=== PATIENT | male | born 1990 | race Two or more races ===

== ENCOUNTER 2018-05-07 21:14 | Emergency (ER) | payer BC, OTHER ==
[~2018-05-07] VITALS: Ht 172.7 cm; Wt 68.0 kg
[~2018-05-07 21:14] MED LIST: IBUPROFEN600 M1 PO; IBUPROFEN600 MG ORAL; MECLIZINE HCL25 MG ORAL; NAPROXEN500 M2 ORAL; NKM
--- NOTE | 2018-05-07 21:33 | NUR ---
ED Nurse Note: Patient walk in c/o sore throat for 2x days. Patient states he had a sore throat 2x weeks ago, took unprescribed amoxicillin for 1x week, sore throat was relieved and then came back 2x days ago. AO4. NAD.
[2018-05-07 21:34] VITALS: BP 105/68
--- NOTE | 2018-05-07 21:59 | NUR ---
ED Nurse Note: ERMD at bedside
[2018-05-07 22:23] VITALS: BP 105/68
--- NOTE | 2018-05-07 22:23 | NUR ---
ED Nurse Note: Patient cleared for discharge per ERMD. AO4. NAD. VSS. Patient given prescriptions and discharge instructions; verbalized understanding. ID band removed. Patient ambulated out with all personal belongings with steady gait.
--- NOTE | 2018-05-08 03:44 | Emergency Room Report ---
History of Present Illness General Chief Complaint: Sore Throat Source: Patient Present Illness HPI 27-year-old M presents ED for evaluation. Patient complaining of sore throat. Started 2 days ago. Pain is dull, 8 out of 10, nonradiating. Notes cough which is dry. Denies fevers or chills. Denies earache. Denies sick contacts or recent travel. States that he has throat pain last month. Was prescribed antibiotics and states it resolved. States at the time he did not have a cough. No other aggravating relieving factors. Denies any other associated symptoms Allergies: Coded Allergies: No Known Allergies (Unverified , 10/21/13) Patient History Past Medical History: none Past Surgical History: none Pertinent Family History: none Social History: Denies: smoking, alcohol use, drug use Immunizations: UTD Reviewed Nursing Documentation: PMH: Agreed; PSxH: Agreed Nursing Documentation-PMH Past Medical History: No Stated History Review of Systems All Other Systems: negative except mentioned in HPI Physical Exam Vital Signs Date Time Temp Pulse Resp B/P (MAP) Pulse Ox O2 Delivery O2 Flow Rate FiO2 05/07/18 21:27 97.9 65 16 105/68 97 Room Air Sp02 EP Interpretation: reviewed, normal General Appearance: no apparent distress, alert, GCS 15, non-toxic Head: normocephalic, atraumatic Eyes: bilateral eye normal inspection, bilateral eye PERRL ENT: hearing grossly normal, normal pharynx, no angioedema, normal voice Neck: full range of motion, supple/symm/no masses Respiratory: chest non-tender, lungs clear, normal breath sounds, speaking full sentences Cardiovascular #1: regular rate, rhythm, no edema Cardiovascular #2: 2+ carotid (R), 2+ carotid (L), 2+ radial (R), 2+ radial (L) , 2+ dorsalis pedis (R), 2+ dorsalis pedis (L) Gastrointestinal: normal bowel sounds, non tender, soft, non-distended, no guarding, no rebound Rectal: deferred Genitourinary: normal inspection, no CVA tenderness Musculoskeletal: back normal, gait/station normal, normal range of motion, non- tender Neurologic: alert, oriented x3, responsive, motor strength/tone normal, sensory intact, speech normal Psychiatric: judgement/insight normal, memory normal, mood/affect normal, no suicidal/homicidal ideation Reflexes: 3+ bicep (R), 3+ bicep (L), 3+ tricep (R), 3+ tricep (L), 3+ knee (R) , 3+ knee (L) Skin: normal color, no rash, warm/dry, well hydrated Lymphatic: no adenopathy Medical Decision Making Diagnostic Impression: Primary Impression: Viral pharyngitis ER Course Hospital Course 27-year-old male presents to ED complaining of sore throat + cough Differential diagnoses include: URI, pharyngitis, otitis media Clinical course Patient placed on stretcher. After initial history, physical exam reveals a young male in no acute distress. Bilateral TM unremarkable. There is no appreciable pharyngeal erythema, no tonsillar exudates. No lymphadenopathy. with cough, consideration for viral pharyngitis Discussed findings with patient. Likely viral. I do not believe antibiotics are indicated at this time. I believe course is self-limited. Patient agrees with plan Stay for discharge and close outpatient follow-up. Patient has a PMD Diagnosis - viral pharyngitis Stable and discharged home. Instructed to followup with PMD. return to ED if symptoms recur or worsen Last Vital Signs Date Time Temp Pulse Resp B/P (MAP) Pulse Ox O2 Delivery O2 Flow Rate FiO2 05/07/18 22:23 97.9 65 16 105/68 97 Room Air Status: improved Disposition: HOME, SELF-CARE Condition: Stable Referrals: BARBARA WADDELL MD (PCP) Patient Instructions: Pharyngitis, [id number] Stan Hughes MD May 08, 2018 03:44
== END 2018-05-07 22:23 | disposition home or self-care (01) ==
LOC: EMR 21:39
DX: J02.8 Acute pharyngitis due to other specified organisms (principal); B97.89 Other viral agents as the cause of diseases classified elsewhere
CPT/HCPCS: 99282